=== PATIENT | female | born 1970 | race Caucasian/White ===

== ENCOUNTER 2016-03-30 16:42 | Inpatient (IN) | payer MEDICARE, MEDICAID ==
[~2016-03-30] VITALS: Ht 165.1 cm; Wt 70.8 kg
[2016-03-30] MEDS ORDERED: LORazepam 2 MG TABLET PO PRN (18:45)
[2016-03-30] MEDS ORDERED: INFLUENZA VIRUS VACCINE QVS 2016-17 (3YR+)/PF 60 MCG/0.5 ML SYRINGE IM ONE (19:15)
[2016-03-30] MEDS ORDERED: PNEUMOCOCCAL VACCINE POLYVALENT 0.5 ML VIAL [PPSV23] IM ONE (19:15)
[2016-03-30] MEDS ORDERED: HALOPERIDOL LACTATE 5 MG/ML VIAL IM ONE (19:30)
[2016-03-30] MEDS ORDERED: DiphenhydrAMINE HCL 50 MG/ML VIAL IM ONE (19:30)
[2016-03-30] MEDS ORDERED: LORazepam 2 MG/ML VIAL IM ONE (19:30)
[2016-03-30 19:57] VITALS: BP 154/85
[2016-03-30] MEDS ORDERED: CloNIDine HCL 0.1 MG TABLET PO PRN (20:45)
[2016-03-30 20:57] VITALS: BP 134/79
[2016-03-31 08:53] VITALS: BP 126/74
[2016-03-31] MEDS: NICOTINE 21 MG/24 HOUR PATCH TD SCH (09:57)
[2016-03-31 16:16] VITALS: BP 115/72
[2016-03-31] MEDS ORDERED: ONDANSETRON HCL 4 MG TABLET PO PRN (18:30)
[2016-03-31 18:45] VITALS: BP 114/75
[2016-03-31] MEDS: IBUPROFEN 600 MG TABLET PO PRN (18:47)
[2016-04-01 00:28] VITALS: BP 109/68
[2016-04-01 06:40] VITALS: BP 112/71
[2016-04-01] MEDS: IBUPROFEN 600 MG TABLET PO PRN ×2 (06:44→23:52)
[2016-04-01 08:24] VITALS: BP 126/85
[2016-04-01] MEDS: ASENAPINE 5 MG SUBLINGUAL TABLET SL SCH ×2 (08:37→16:13)
[2016-04-01] MEDS: NICOTINE 21 MG/24 HOUR PATCH TD SCH (08:37)
[2016-04-01 09:14] LABS: BASOPHILS % (AUTO) 0.4 % (0.0-2.0); EOSINOPHILS % (AUTO) 3.2 % (1.0-6.0); HEMATOCRIT 27.8 % (36-46); LYMPHOCYTES # (AUTO) 1.9 K/uL (1.0-4.8); LYMPHOCYTES % (AUTO) 19.3 % (22.0-44.0); MEAN CORPUSCULAR HEMOGLOBIN 19.3 pg (26.0-34.0); MEAN CORPUSCULAR HGB CONC 28.7 G/dL (31.0-37.0); MEAN CORPUSCULAR VOLUME 67 fL (80-100); MONOCYTES # (AUTO) 0.7 K/uL (0.1-1.0); MONOCYTES % (AUTO) 7.6 % (2.0-9.0); NEUTROPHILS # (AUTO) 6.7 K/uL (1.8-7.7); NEUTROPHILS % (AUTO) 69.5 % (40.0-70.0); PLATELET COUNT (AUTO) 193 K/uL (150-450); RED BLOOD CELL COUNT(AUTO) 4.14 MIL/uL (4.00-5.20); RED CELL DISTRIBUTION WIDTH 20.5 % (11.5-14.5); WHITE BLOOD COUNT (AUTO) 9.7 K/uL (4.5-11.0)
[2016-04-01 09:52] LABS: HEMOGLOBIN A1C 5.4 % (4.5-6.2)
[2016-04-01 10:30] LABS: ALANINE AMINOTRANSFERASE 32 U/L (12-78); ANION GAP 5 mmol/L (8-16); ASPARTATE AMINOTRANSFERASE 22 U/L (15-37); BILIRUBIN,TOTAL 0.3 mg/dL (0.1-1.0); CALCIUM, TOTAL 8.1 mg/dL (8.8-10.5); CARBON DIOXIDE 30 mmol/L (22-29); CHLORIDE 102 mmol/L (98-107); CREATININE 0.52 mg/dL (0.60-1.30); GLOMERULAR FILTR. RATE CALC > 60 mL/min (>60); POTASSIUM 4.1 mmol/L (3.5-5.1); SODIUM SERUM 137 mmol/L (136-145); UREA NITROGEN, BLOOD 12 mg/dL (7-18)
[2016-04-01 10:36] LABS: RBC MORPHOLOGY COMMENT ABNORMAL RBC MORPH
[2016-04-01 11:14] LABS: CHOL/HDL RATIO 2.2 (3.9-5.7); CREATINE KINASE MB 1.9 ng/mL (0-5); CREATINE KINASE, TOTAL 75 U/L (26-192); THYROID STIMULATING HORMONE 36.29 uIU/mL (0.36-3.74)
[2016-04-01] MEDS: LEVOTHYROXINE SODIUM 50 MCG TABLET PO SCH (12:07)
[2016-04-01 16:08] VITALS: BP 118/77
[2016-04-01] MEDS: FERROUS SULFATE 325 MG EC TABLET PO SCH (16:13)
[2016-04-01] MEDS: ZOLPIDEM TARTRATE 10 MG TABLET PO PRN (23:52)
[2016-04-02] VITALS: BP 140/78
[2016-04-02 06:20] VITALS: BP 132/72
[2016-04-02] MEDS: FERROUS SULFATE 325 MG EC TABLET PO SCH ×2 (06:31→16:27)
[2016-04-02] MEDS: LEVOTHYROXINE SODIUM 50 MCG TABLET PO SCH (06:31)
[2016-04-02 08:24] VITALS: BP 116/67
[2016-04-02] MEDS: NICOTINE 21 MG/24 HOUR PATCH TD SCH (08:25)
[2016-04-02] MEDS: ASENAPINE 5 MG SUBLINGUAL TABLET SL SCH ×2 (08:25→16:26)
[2016-04-02 16:13] VITALS: BP 143/88
[2016-04-02] MEDS: IBUPROFEN 600 MG TABLET PO PRN ×2 (16:27→23:41)
[2016-04-02] MEDS: ALBUTEROL SULFATE HFA 90 MCG/PUFF 8 GM INHALER IH PRN (16:55)
[2016-04-02 23:40] VITALS: BP 136/79
[2016-04-02] MEDS: ZOLPIDEM TARTRATE 10 MG TABLET PO PRN (23:41)
[2016-04-03] MEDS: LEVOTHYROXINE SODIUM 50 MCG TABLET PO SCH (06:45)
[2016-04-03] MEDS: FERROUS SULFATE 325 MG EC TABLET PO SCH ×2 (06:45→17:01)
[2016-04-03 08:08] VITALS: BP 131/72
[2016-04-03] MEDS: IBUPROFEN 600 MG TABLET PO PRN (08:34)
[2016-04-03] MEDS: CHOLECALCIFEROL (VIT D3) 1,000 UNITS TABLET PO SCH (08:34)
[2016-04-03] MEDS: ASENAPINE 5 MG SUBLINGUAL TABLET SL SCH ×2 (08:34→16:16)
[2016-04-03] MEDS: NICOTINE 21 MG/24 HOUR PATCH TD SCH (08:36)
[2016-04-03] MEDS ORDERED: IBUPROFEN 800 MG TABLET PO PRN (12:00)
[2016-04-03] MEDS ORDERED: ACETAMINOPHEN 325 MG TABLET PO PRN (14:30)
[2016-04-03] MEDS ORDERED: CYANOCOBALAMIN 1,000 MCG/ML VIAL IM ONE (14:30)
[2016-04-03 16:13] VITALS: BP 122/71
[2016-04-03] MEDS: CHOLECALCIFEROL (VIT D3) 2,000 UNITS TABLET PO SCH (16:16)
[2016-04-03 17:16] VITALS: BP 125/68
[2016-04-04 06:31] LABS: HEPATITIS Bs ANTIGEN SCREEN P Negative (Negative); HEPATITIS C AB SCREEN <0.1 s/co ratio (0.0-0.9)
[2016-04-04] MEDS: LEVOTHYROXINE SODIUM 75 MCG TABLET PO SCH (06:32)
[2016-04-04] MEDS: FERROUS SULFATE 325 MG EC TABLET PO SCH ×2 (06:32→16:25)
[2016-04-04 06:55] VITALS: BP 135/72
[2016-04-04 09:03] VITALS: BP 123/80
[2016-04-04] MEDS: NICOTINE 21 MG/24 HOUR PATCH TD SCH (09:43)
[2016-04-04] MEDS: CHOLECALCIFEROL (VIT D3) 2,000 UNITS TABLET PO SCH (09:44)
[2016-04-04] MEDS: ASENAPINE 5 MG SUBLINGUAL TABLET SL SCH ×2 (09:44→16:25)
[2016-04-04] MEDS: MULTIVITAMINS WITH IRON TABLET PO SCH (09:44)
[2016-04-04] MEDS: PANTOPRAZOLE SODIUM 40 MG DR TABLET PO SCH (09:44)
[2016-04-04] MEDS: CYANOCOBALAMIN 500 MCG TABLET PO SCH (09:44)
[2016-04-04] MEDS: CHOLECALCIFEROL (VIT D3) 1,000 UNITS TABLET PO SCH (09:44)
[2016-04-04] MEDS: FOLIC ACID 1 MG TABLET PO SCH (09:47)
[2016-04-04 16:15] VITALS: BP 131/81
[2016-04-05 00:06] VITALS: BP 117/76
[2016-04-05] MEDS: LEVOTHYROXINE SODIUM 75 MCG TABLET PO SCH (06:40)
[2016-04-05] MEDS: FERROUS SULFATE 325 MG EC TABLET PO SCH ×2 (06:40→17:21)
[2016-04-05] MEDS: NICOTINE 21 MG/24 HOUR PATCH TD SCH (08:50)
[2016-04-05] MEDS: CYANOCOBALAMIN 500 MCG TABLET PO SCH (08:50)
[2016-04-05] MEDS: CHOLECALCIFEROL (VIT D3) 2,000 UNITS TABLET PO SCH (08:50)
[2016-04-05] MEDS: MULTIVITAMINS WITH IRON TABLET PO SCH (08:50)
[2016-04-05] MEDS: PANTOPRAZOLE SODIUM 40 MG DR TABLET PO SCH (08:51)
[2016-04-05] MEDS: ASENAPINE 5 MG SUBLINGUAL TABLET SL SCH ×2 (08:51→17:37)
[2016-04-05] MEDS: FOLIC ACID 1 MG TABLET PO SCH (08:55)
[2016-04-05] MEDS: EPOETIN ALFA 10,000 UNITS/ML VIAL SQ SCH (11:40)
[2016-04-05 16:19] VITALS: BP 110/70
[2016-04-06 01:02] VITALS: BP 119/69
[2016-04-06] MEDS: ZOLPIDEM TARTRATE 10 MG TABLET PO PRN ×2 (01:10→21:30)
[2016-04-06] MEDS: FERROUS SULFATE 325 MG EC TABLET PO SCH ×2 (06:36→16:38)
[2016-04-06] MEDS: LEVOTHYROXINE SODIUM 75 MCG TABLET PO SCH (06:36)
[2016-04-06] MEDS: CHOLECALCIFEROL (VIT D3) 2,000 UNITS TABLET PO SCH (08:50)
[2016-04-06 08:51] VITALS: BP 117/89
[2016-04-06] MEDS: FOLIC ACID 1 MG TABLET PO SCH (08:51)
[2016-04-06] MEDS: ASENAPINE 5 MG SUBLINGUAL TABLET SL SCH ×2 (08:51→16:38)
[2016-04-06] MEDS: CYANOCOBALAMIN 500 MCG TABLET PO SCH (08:51)
[2016-04-06] MEDS: PANTOPRAZOLE SODIUM 40 MG DR TABLET PO SCH (08:51)
[2016-04-06] MEDS: NICOTINE 21 MG/24 HOUR PATCH TD SCH (08:51)
[2016-04-06] MEDS: MULTIVITAMINS WITH IRON TABLET PO SCH (08:51)
[2016-04-06 16:20] VITALS: BP 129/85
[2016-04-07 00:12] VITALS: BP 138/87
[2016-04-07] MEDS: FERROUS SULFATE 325 MG EC TABLET PO SCH ×2 (06:22→16:23)
[2016-04-07] MEDS: LEVOTHYROXINE SODIUM 75 MCG TABLET PO SCH (06:22)
[2016-04-07 08:31] VITALS: BP 148/88
[2016-04-07] MEDS: CHOLECALCIFEROL (VIT D3) 2,000 UNITS TABLET PO SCH (09:01)
[2016-04-07] MEDS: ASENAPINE 5 MG SUBLINGUAL TABLET SL SCH ×2 (09:01→16:23)
[2016-04-07] MEDS: MULTIVITAMINS WITH IRON TABLET PO SCH (09:01)
[2016-04-07] MEDS: FOLIC ACID 1 MG TABLET PO SCH (09:01)
[2016-04-07] MEDS: PANTOPRAZOLE SODIUM 40 MG DR TABLET PO SCH (09:01)
[2016-04-07] MEDS: CYANOCOBALAMIN 500 MCG TABLET PO SCH (09:01)
[2016-04-07] MEDS: NICOTINE 21 MG/24 HOUR PATCH TD SCH (09:01)
[2016-04-07] MEDS: EPOETIN ALFA 10,000 UNITS/ML VIAL SQ SCH (09:04)
[2016-04-07 16:20] VITALS: BP 135/88
[2016-04-07] MEDS: ZOLPIDEM TARTRATE 10 MG TABLET PO PRN (21:02)
[2016-04-08] MEDS: FERROUS SULFATE 325 MG EC TABLET PO SCH ×2 (06:32→17:27)
[2016-04-08] MEDS: LEVOTHYROXINE SODIUM 75 MCG TABLET PO SCH (06:32)
[2016-04-08 07:05] VITALS: BP 113/64
[2016-04-08 08:37] VITALS: BP 129/75
[2016-04-08] MEDS: FOLIC ACID 1 MG TABLET PO SCH (08:58)
[2016-04-08] MEDS: CYANOCOBALAMIN 500 MCG TABLET PO SCH (08:58)
[2016-04-08] MEDS: CHOLECALCIFEROL (VIT D3) 2,000 UNITS TABLET PO SCH (08:58)
[2016-04-08] MEDS: PANTOPRAZOLE SODIUM 40 MG DR TABLET PO SCH (08:58)
[2016-04-08] MEDS: ASENAPINE 5 MG SUBLINGUAL TABLET SL SCH ×2 (08:58→17:27)
[2016-04-08] MEDS: MULTIVITAMINS WITH IRON TABLET PO SCH (08:58)
[2016-04-08] MEDS: NICOTINE 21 MG/24 HOUR PATCH TD SCH (08:59)
[2016-04-08 13:21] LABS: GLUCOSE,POINT OF CARE 72 MG/DL (70-110)
[2016-04-08 16:09] VITALS: BP 112/74
[2016-04-09 05:29] VITALS: BP 121/71
[2016-04-09] MEDS: LEVOTHYROXINE SODIUM 75 MCG TABLET PO SCH (06:25)
[2016-04-09] MEDS: FERROUS SULFATE 325 MG EC TABLET PO SCH ×2 (06:25→16:17)
[2016-04-09 08:44] VITALS: BP 134/85
[2016-04-09] MEDS: MULTIVITAMINS WITH IRON TABLET PO SCH (10:43)
[2016-04-09] MEDS: CHOLECALCIFEROL (VIT D3) 2,000 UNITS TABLET PO SCH (10:43)
[2016-04-09] MEDS: CYANOCOBALAMIN 500 MCG TABLET PO SCH (10:43)
[2016-04-09] MEDS: FOLIC ACID 1 MG TABLET PO SCH (10:43)
[2016-04-09] MEDS: PANTOPRAZOLE SODIUM 40 MG DR TABLET PO SCH (10:43)
[2016-04-09] MEDS: ASENAPINE 5 MG SUBLINGUAL TABLET SL SCH ×2 (10:43→16:17)
[2016-04-09] MEDS: NICOTINE 21 MG/24 HOUR PATCH TD SCH (10:44)
[2016-04-09] MEDS: EPOETIN ALFA 10,000 UNITS/ML VIAL SQ SCH (10:48)
[2016-04-09 16:28] VITALS: BP 118/69
[2016-04-09] MEDS: ZOLPIDEM TARTRATE 10 MG TABLET PO PRN (22:08)
[2016-04-10 00:52] VITALS: BP 135/89
[2016-04-10] MEDS: LEVOTHYROXINE SODIUM 75 MCG TABLET PO SCH (06:36)
[2016-04-10] MEDS: FERROUS SULFATE 325 MG EC TABLET PO SCH ×2 (06:36→16:36)
[2016-04-10 08:27] LABS: BASOPHILS % (AUTO) 0.2 % (0.0-2.0); EOSINOPHILS % (AUTO) 5.2 % (1.0-6.0); HEMATOCRIT 28.7 % (36-46); HEMOGLOBIN 8.2 g/dL (12.0-16.0); LYMPHOCYTES # (AUTO) 2.3 K/uL (1.0-4.8); LYMPHOCYTES % (AUTO) 24.4 % (22.0-44.0); MEAN CORPUSCULAR HEMOGLOBIN 19.4 pg (26.0-34.0); MEAN CORPUSCULAR HGB CONC 28.6 G/dL (31.0-37.0); MEAN CORPUSCULAR VOLUME 68 fL (80-100); MONOCYTES # (AUTO) 0.7 K/uL (0.1-1.0); MONOCYTES % (AUTO) 7.6 % (2.0-9.0); NEUTROPHILS % (AUTO) 62.6 % (40.0-70.0); PLATELET COUNT (AUTO) 184 K/uL (150-450); RED BLOOD CELL COUNT(AUTO) 4.21 MIL/uL (4.00-5.20); RED CELL DISTRIBUTION WIDTH 20.9 % (11.5-14.5); WHITE BLOOD COUNT (AUTO) 9.5 K/uL (4.5-11.0)
[2016-04-10 08:36] VITALS: BP 114/69
[2016-04-10] MEDS: MULTIVITAMINS WITH IRON TABLET PO SCH (09:04)
[2016-04-10] MEDS: NICOTINE 21 MG/24 HOUR PATCH TD SCH (09:04)
[2016-04-10] MEDS: ASENAPINE 5 MG SUBLINGUAL TABLET SL SCH (09:04)
[2016-04-10] MEDS: PANTOPRAZOLE SODIUM 40 MG DR TABLET PO SCH (09:04)
[2016-04-10] MEDS: CYANOCOBALAMIN 500 MCG TABLET PO SCH (09:05)
[2016-04-10] MEDS: CHOLECALCIFEROL (VIT D3) 2,000 UNITS TABLET PO SCH (09:05)
[2016-04-10] MEDS: FOLIC ACID 1 MG TABLET PO SCH (09:10)
[2016-04-10 12:44] LABS: RBC MORPHOLOGY COMMENT ABNORMAL RBC MORPH
[2016-04-10 16:20] VITALS: BP 109/63
[2016-04-10] MEDS: ASENAPINE 10 MG SUBLINGUAL TABLET SL SCH (16:36)
[2016-04-10] MEDS: ZOLPIDEM TARTRATE 10 MG TABLET PO PRN (21:05)
[2016-04-11 00:30] VITALS: BP 137/89
[2016-04-11] MEDS: LEVOTHYROXINE SODIUM 75 MCG TABLET PO SCH ×2 (06:25→06:30)
[2016-04-11] MEDS: FERROUS SULFATE 325 MG EC TABLET PO SCH ×2 (06:25→07:00)
[2016-04-11 08:10] VITALS: BP 106/64
[2016-04-11] MEDS: MULTIVITAMINS WITH IRON TABLET PO SCH (10:07)
[2016-04-11] MEDS: CHOLECALCIFEROL (VIT D3) 2,000 UNITS TABLET PO SCH (10:07)
[2016-04-11] MEDS: FOLIC ACID 1 MG TABLET PO SCH (10:07)
[2016-04-11] MEDS: PANTOPRAZOLE SODIUM 40 MG DR TABLET PO SCH (10:07)
[2016-04-11] MEDS: CYANOCOBALAMIN 500 MCG TABLET PO SCH (10:07)
[2016-04-11] MEDS: NICOTINE 21 MG/24 HOUR PATCH TD SCH (10:07)
[2016-04-11] MEDS: ASENAPINE 10 MG SUBLINGUAL TABLET SL SCH (10:07)
[2016-04-11] MEDS ORDERED: ASEN10TA8 SL (11:53)
[2016-04-11] MEDS ORDERED: LEVO75 PO (11:55)
[2016-04-11] MEDS ORDERED: PANT40TA25 PO (11:56)
[2016-04-11] MEDS ORDERED: CYAN100092 PO (11:59)
[2016-04-11] MEDS ORDERED: CHOL200026 PO (12:00)
[2016-04-11] MEDS ORDERED: FERR-72 PO (12:02)
[2016-04-11] MEDS: EPOETIN ALFA 10,000 UNITS/ML VIAL SQ SCH (12:06)
[2016-04-11] MEDS: ALBUTEROL SULFATE HFA 90 MCG/PUFF 8 GM INHALER IH PRN (14:31)
== END 2016-04-11 15:25 | disposition home or self-care (01) | DRG 885 ==
LOC: EDBD → B3A 18:59 → B2S 04-05 15:50
PROVIDERS: ADMIT Psychiatry & Neurology Child & Adolescent Psychiatry; ATTEND Psychiatry & Neurology Child & Adolescent Psychiatry
DX: F20.0 Paranoid schizophrenia (principal); F15.20 Other stimulant dependence, uncomplicated; D50.9 Iron deficiency anemia, unspecified; E03.9 Hypothyroidism, unspecified; E53.8 Deficiency of other specified B group vitamins; E55.9 Vitamin D deficiency, unspecified; F17.200 Nicotine dependence, unspecified, uncomplicated; F39 Unspecified mood [affective] disorder; G35 Multiple sclerosis; H91.92 Unspecified hearing loss, left ear; I10 Essential (primary) hypertension; J44.9 Chronic obstructive pulmonary disease, unspecified; J45.909 Unspecified asthma, uncomplicated; K21.9 Gastro-esophageal reflux disease without esophagitis; G89.29 Other chronic pain; Z59.0 Homelessness; Z91.19 Patient's noncompliance with other medical treatment and regimen; Z99.3 Dependence on wheelchair
CPT/HCPCS: 80074; 82306; 82607; 82746; 82962; 83036; 83735; 84439; 84443; 86592; 87081; 90471; J0885; J1200; J1630; J2060; J3420; J3535; Q0162